=== PATIENT | female | born 1940 | race Caucasian/White ===

== ENCOUNTER 2016-07-06 10:18 | Emergency (ER) | payer MEDICARE, MEDICAID ==
[2016-07-06] MEDS ORDERED: traMADol 50 MG Tab PO ONE (11:06)
--- NOTE | 2016-07-06 11:06 | EDM.PDOC ---
ED HPI Trauma - General Chief Complaint: Lower Extremity Injury/Pain Stated Complaint: LEFT LEG PAIN Time Seen by Provider: 07/06/16 11:00 Source: Reports: Patient History Limitations: Reports: No limitations - History of Present Illness INITIAL COMMENTS - FREE TEXT/NARRATIVE: Patient presents for evaluation and treatment of pain to the left popliteal fossa. Patient reports she's been thinking pain in this area on and off for several years after some trauma several years ago. She reports that today the pain can appreciate in radiated superiorly into her distal leg. She states that she has been unable to walk on it. She reports that the pain was a 10 out of 10. She did take some Tylenol and that seems to be improving the pain. She reports pain to the left posterior popliteal fossa and medial posterior distal leg. She denies any numbness or tingling, calf pain. Patient is on blood thinners. 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: Musculoskeletal History: Reports: Arthritis Neurological History: Reports: CVA Oncologic (Cancer) History: Reports: Cervix - Past Surgical History GI Surgical History: Reports: Colonoscopy Female Surgical History: Reports: Hysterectomy Social & Family History - Tobacco Use Smoking Status *Q: Current Every Day Smoker Years of Tobacco use: 40 Packs/Tins Daily: 0.2 - Caffeine Use Caffeine Use: Reports: None - Recreational Drug Use Recreational Drug Use: No Review of Systems - Review of Systems Review Of Systems: See Below Musculoskeletal: Reports: leg pain (left), joint pain (left popliteal fossa with radiation to the distal left leg) Neurological: Reports: Difficulty Walking. Denies: Numbness, Tingling Trauma Exam - Physical Exam Exam: See Below Exam Limited By: No limitations General Appearance: Reports: alert, WD/WN, no apparent distress Respiratory Exam: Reports: no respiratory distress, lungs clear Cardiovascular: Reports: normal peripheral pulses, regular rate, rhythm Extremities: Reports: pain with movement (flexion of the left knee to 135 degrees, unable to fully extend due to pain, unable to flex more than 100 degrees due to pain ), tenderness (left popliteal area and left distal leg), other (negative shana's sign; no obvious bakers cyst appreciated to the left popliteal fossa) Neurologic: Reports: alert, normal mood/affect Skin: Reports: Normal color, Warm/dry Course - Vital Signs Last Recorded V/S: Last Vital Signs Temp 36.7 C 07/06/16 10:27 Pulse 72 07/06/16 10:27 Resp 12 07/06/16 10:27 BP 130/70 07/06/16 13:34 Pulse Ox 100 07/06/16 13:34 - Orders/Labs/Meds Meds: Medications Discontinued Medications Generic Name Dose Route Start Last Admin Trade Name Jimmie PRN Reason Stop Dose Admin Tramadol HCl 50 mg 07/06/16 11:06 07/06/16 11:15 Ultram PO 07/06/16 11:07 50 mg ONETIME ONE Administration - Radiology Interpretation Free Text/Narrative:: ultrasound of left lower leg impression per Dr. Escalona: 1. No findings of DVT seen within the left lower extremity or within the right common moral vein. No popliteal cyst is seen CT Results Date: 07/06/16 - Re-Assessments/Exams Free Text/Narrative Re-Assessment/Exam: 07/06/16 13:13 Discussed the ultrasound results with the patient. Unlikely to be a Raygoza's cyst causing the discomfort. Likely a strained gastrocs muscle. I will prescribe her some tramadol to help with the discomfort and will provider a walker so she may get around safely. We discussed physical therapy and referral to orthopedics. She would like to give this to some time to see for resolves its own and if not she'll then see her primary care provider and discuss these things further. Discharge instructions as documented. Departure - Departure Time of Disposition: 13:13 Disposition: Home, Self-Care 01 Condition: good Clinical Impression: Muscle strain Prescriptions: traMADol [Ultram] 50 mg PO Q4H PRN #15 tablet PRN Reason: Pain Instructions: Muscle Strain Referrals: Destiny Turner MD [Primary Care Provider] - Forms: ED Department Discharge Additional Instructions: you were given medication in he ER that can affect your ability to drive and operative machinery. No driving or operating machinery within 12 hours of taking the tramadol. Tramadol one tab every 4-6 hours as needed for severe pain. No driving or machinery with 12 hours of taking the tramadol. Tramadol can be habit-forming, recommend you take as few of these as needed to control her pain. may take over- the-counter Tylenol as needed for less severe pain. may use ice or moist heat to the area to help relax the muscles and reduce the swelling. Use the walker as needed. If your symptoms do not improve within one to 2 weeks follow up with your primary care provider. you may require physical therapy and orthopedic consult for further management and care. Please return to the ER should your symptoms change or worsen.
--- NOTE | 2016-07-06 13:20 | US ---
Left lower extremity deep venous ultrasound: Duplex and color flow imaging was obtained of the left common femoral, superficial femoral, proximal greater saphenous, popliteal, posterior tibial and peroneal veins. Right common femoral vein was also evaluated. Findings: Lack of phasic flow is seen within the posterior tibial and peroneal veins but normal augmentation and compression is seen within these veins and lack of phasicity felt to be due to their small size. Other veins show normal phasic flow, augmentation and compression. Right common femoral vein also shows normal compression, phasic flow and augmentation. Impression: 1. No findings of deep venous thrombosis seen within the left lower extremity or within the right common femoral vein. No popliteal cyst is seen. Diagnostic code #1
[2016-07-06 13:40] VITALS: BP 130/70
== END 2016-07-06 13:40 | disposition home or self-care (01) ==
LOC: JD.ED 10:18
DX: S86.812A Strain of other muscle(s) and tendon(s) at lower leg level, left leg, initial encounter (principal); X58.XXXA Exposure to other specified factors, initial encounter; I10 Essential (primary) hypertension; E78.00 Pure hypercholesterolemia, unspecified; K21.9 Gastro-esophageal reflux disease without esophagitis; F17.210 Nicotine dependence, cigarettes, uncomplicated; Z86.73 Personal history of transient ischemic attack (TIA), and cerebral infarction without residual deficits; Z90.710 Acquired absence of both cervix and uterus; Z85.41 Personal history of malignant neoplasm of cervix uteri
CPT/HCPCS: 93971; 99284; A9270; 99283